=== PATIENT | female | born 1985 | race Hispanic/Latino ===

== ENCOUNTER 2019-03-30 11:57 | Emergency (ER) | payer BC, SELFPAY ==
--- OUTSIDE RECORDS SUMMARY | 2019-03-30 12:01 | XMS REPORT | Clinical Summary ---
:1985 Author Organization [facility] Address [address] [place] [address] Care Team Providers Name Role Phone Laurence Cartwright Radha PROFESSIONAL ORGANIZER-C Primary Care Provider Allergies No Known Allergies Medications Medication Sig Dispensed Refills Start Date End Date Status PROAIR HFA 90 0 01/26/2017 Active mcg/actuation inhaler benzonatate (TESSALON) 0 01/26/2017 Active 100 MG capsule Take 1 tablet by 0 Active vit,[id number] mouth daily. 29 mg iron- 1 mg tablet per tablet Active Problems Problem Noted Date Goiter, simple 03/25/2017 Last Assessment & Plan: Patti has a history of a slightly enlarged thyroid for many years. Previous testing results (scan and ultrasound) are not available today. Clinically she is euthyroid and her free T4 and TSH levels are normal. She has a slightly elevated thyroglobulin level. On exam she has a firm but not nodular thyroid. We will arrange for a formal thyroid ultrasound in the next few weeks. I will call her as soon as the results come in. Lung nodule 01/06/2017 Family History Medical History Relation Name Comments Diabetes Father Hyperlipidemia Father Prostate cancer Father Thyroid cancer Father Hyperlipidemia Mother Hypertension Mother Relation Name Status Comments Father Alive Mother Alive Social History Tobacco Use Types Packs/Day Years Used Date Never Smoker Smokeless Tobacco: Never Used Alcohol Use Drinks/Week oz/Week Comments Yes occassionally- beer & wine Sex Assigned at Date Recorded Not on file Job Start Date Occupation Industry Not on file Not on file Not on file Travel History Travel Start Travel End No recent travel history available. Last Filed Vital Signs Not on file Plan of Treatment Health Maintenance Due Date Last Done Comments INFLUENZA VACCINE 04/28/2019 Implants Implanted Type Area Bottle Booth Attendant Device Shelf Model / Identifier Expiration Serial / Date Lot Kit Selnt Plrl Air Leak 4ml Strl Progel - [id number] Surgical N/A: N/A [employer] [id number] / Implanted: 01/06/2017 (Quantity not on file) Implants; / Expanders; Extenders; Surgical Wires Results Not on fileafter 03/29/2018 Advance Directives Patient has advance care planning documents on file. For more information, please contact:Eric Oshea[address] [place] [address]
--- OUTSIDE RECORDS SUMMARY | 2019-03-30 12:01 | XMS REPORT ---
:1985 Author Organization [employer] Care Team Providers Name Role Phone Nikhil Harley Provider Role Unavailable Allergies, Adverse Reactions, Alerts Substance Reaction Event Type N.K.D.A. Info Not Available Non Drug Allergy Problems Problem Type Condition Code Onset Dates Condition Status Assessment Intermittent palpitations R00.2 Active Problem Prediabetes R73.03 Active Assessment Vitamin D deficiency disease E55.9 Active Assessment Prediabetes R73.03 Active Assessment Adult BMI 37.0-37.9 kg/sq m Z68.37 Active Assessment Hyperlipidemia, unspecified E78.5 Active hyperlipidemia type Problem Hyperlipidemia, unspecified E78.5 Active hyperlipidemia type Problem Adult BMI 37.0-37.9 kg/sq m Z68.37 Active Problem Vitamin D deficiency disease E55.9 Active Problem Thyroid dysfunction E07.9 Active Problem Vitamin B12 deficiency E53.8 Active Problem B12 deficiency E53.8 Active Problem BMI 35.0-35.9,adult Z68.35 Active Medications Medication Code Code Instructions Start End Status Dosage System Date Date [facility] [address] Active not Vitamin defined Iron [facility] [address]-74 Active not defined Vitamin D-3 [facility] [id number] 5000 UNIT Active 1 tablet Orally Once a day Results No Known Results Summary Purpose eClinical[employer] Submission
[2019-03-30] MEDS ORDERED: ONDANSETRON 4 MG/2 ML VIAL ONE (13:38)
[2019-03-30] MEDS ORDERED: NA CHLORIDE 0.9% 1,000 ML ONE (13:38)
[2019-03-30 13:40] LABS: Basophils % 0.7 % (0-1.3); Eosinophils % 1.2 % (0-4.4); Hematocrit 38.6 % (36.0-45.0); Lymphocytes % 29.8 % (15.3-44.8); MPV 9.5 fL (7.6-11.3); Monocytes % 4.2 % (3.3-12.3); RBC Red Blood Cell Count 4.69 M/uL (3.86-4.86)
[2019-03-30 14:09] LABS: ALT/SGPT 19 U/L (12-78); AST/SGOT 12 U/L (15-37); Albumin 3.3 g/dL (3.4-5.0); Alkaline Phosphatase 83 U/L (45-117); BUN Blood Urea Nitrogen 9 mg/dL (7-18); Bicarbonate 30 mmol/L (21-32); Bilirubin Direct < 0.1 mg/dL (0-0.2); Bilirubin Total 0.3 mg/dL (0.2-1.0); Glucose Level 94 mg/dL (74-106); Lipase 136 U/L (73-393); Potassium 3.8 mmol/L (3.5-5.1); Protein, Total 7.6 g/dL (6.4-8.2); Sodium Level 141 mmol/L (136-145)
[2019-03-30 15:40] LABS: Urine Blood NEGATIVE (NEG); Urine Glucose NEGATIVE (NEG); Urine Protein NEGATIVE (NEG); Urine Specific Gravity 1.015 (1.005-1.030)
--- NOTE | 2019-03-30 17:04 | RAD REPORT ---
EXAM DESCRIPTION: US - Abdomen Exam Limited - 03/30/2019 4:38 pm CLINICAL HISTORY: abdominal pain COMPARISON: <Comparisons> FINDINGS: The gallbladder is significantly contracted, limiting assessment. The common bile duct is normal measuring 4 mm. The liver demonstrates no findings of intrahepatic biliary dilatation. IMPRESSION: Significant gallbladder contraction, limits assessment. No pathologic biliary dilatation seen.
--- NOTE | 2019-03-30 17:15 | EDPHYS ---
Physician Documentation [facility] Name: Patti Cox Age: 33 yrs Sex: Female : 1985 Arrival Date: 03/30/2019 Time: 11:59 Bed 18 Private MD: ED Physician Rafael West HPI: 03/30 12:17 This 33 yrs old Female presents to ER via Ambulatory with complaints of jmm Nausea/Vomiting, Dizziness, Pain All Over. 12:17 The patient presents to the emergency department with nausea, vomiting, diarrhea. jmm Onset: The symptoms/episode began/occurred gradually, March 10. Possible causes: travel. The symptoms are aggravated by food , The symptoms are alleviated by OTC meds. Associated signs and symptoms: Pertinent positives:. This is a 33 year old female with no chronic medical conditions that presents to the ED with complaints of ongoing diarrhea since a visit to [place] on March 10. Patient states having intermittent diarrhea since worsening over the past 3 days. Patient states she now feels lightheaded and weak. Patient complains of pain to the right upper back which radiates up the side of her neck. patient denies abdominal pain. . 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 - Social history:: Smoking status: Patient/guardian denies using tobacco. - Ebola Screening: : Patient reports travel to an Ebola-affected area in the 21 days before illness onset. Patient reports to have traveled to [place]. ROS: 12:17 Constitutional: Negative for fever, chills, and weight loss, Cardiovascular: Negative jmm for chest pain, palpitations, and edema, Respiratory: Negative for shortness of breath, cough, wheezing, and pleuritic chest pain. 12:17 Neck: Positive for pain with movement. 12:17 Abdomen/GI: Positive for nausea and vomiting, diarrhea. 12:17 Neuro: Positive for dizziness. 12:17 All other systems are negative. Exam: 12:17 Constitutional: This is a well developed, well nourished patient who is awake, alert, jmm and in no acute distress. Head/Face: atraumatic. Eyes: EOMI, no conjunctival erythema appreciated ENT: Moist Mucus Membranes Neck: Trachea midline, Supple Chest/axilla: Normal chest wall appearance and motion. Cardiovascular: Regular rate and rhythm. No edema appreciated Respiratory: Normal respirations, no respiratory distress appreciated 12:17 Abdomen/GI: Inspection: obese Bowel sounds: normal, Palpation: abdomen is soft and non-tender, in all quadrants. 12:17 Skin: Appearance: Color: normal in color. 12:17 Neuro: Orientation: is normal, Mentation: is normal, Memory: is normal. 12:17 Psych: Behavior/mood is pleasant, cooperative. Vital Signs: 12:09 BP 148 / 88; Pulse 68; Resp 16; Temp 98.1(O); Pulse Ox 98% on R/A; Weight 104.33 kg; hb Height 5 ft. 5 in. (165.10 cm); Pain 5/10; 13:30 BP 98 / 69; Pulse 67; Resp 16; Pulse Ox 100% ; bp 15:19 BP 114 / 73; Pulse 63; Resp 16; Pulse Ox 99% ; bp 16:49 BP 105 / 71; Pulse 58; Resp 16; Pulse Ox 100% ; bp 17:57 BP 111 / 69; Pulse 61; Resp 16; Temp 98; Pulse Ox 99% ; bp 12:09 Body Mass Index 38.27 (104.33 kg, 165.10 cm) hb MDM: 12:17 Patient medically screened. [facility] 17:12 Data reviewed: vital signs, nurses notes. Counseling: I had a detailed discussion with [facility] the patient and/or guardian regarding: the historical points, exam findings, and any diagnostic results supporting the discharge/admit diagnosis, lab results, radiology results, the need for outpatient follow up, to return to the emergency department if symptoms worsen or persist or if there are any questions or concerns that arise at home. ED course: Patient is alert and non toxic in appearance in the ED. Patient was advised to follow up with GI for further evaluation. Patient otherwise given strict return precautions. patient understood and agrees with the plan of care. . 03/30 13:06 Order name: Basic Metabolic Panel; Complete Time: 14:18 [facility] 03/30 13:06 Order name: CBC with Diff; Complete Time: 13:51 [facility] 03/30 13:06 Order name: Creatinine for Radiology; Complete Time: 14:03 [facility] 03/30 13:06 Order name: Hepatic Function; Complete Time: 14:18 [facility] 03/30 13:06 Order name: Lipase; Complete Time: 14:18 [facility] 03/30 13:57 Order name: Urine Dipstick--Ancillary (enter results); Complete Time: 15:42 ms 03/30 13:06 Order name: IV Saline Lock; Complete Time: 13:38 [facility] 03/30 13:06 Order name: Labs collected and sent; Complete Time: 13:38 [facility] 03/30 13:14 Order name: EKG - Nurse/Tech; Complete Time: 13:20 [facility] 03/30 13:35 Order name: Urine Dipstick-Ancillary (obtain specimen); Complete Time: 13:45 [facility] 03/30 13:57 Order name: Urine --Ancillary (enter results); Complete Time: 15:42 ms 03/30 15:22 Order name: US Abdomen Limited; Complete Time: 17:12 jm Administered Medications: 13:30 Drug: NS 0.9% 1000 ml Route: IV; Rate: 1 bolus; Site: right antecubital; bp 17:58 Follow up: IV Status: Completed infusion; IV Intake: 1000ml bp 13:30 Drug: Zofran 4 mg Route: IVP; Site: right antecubital; bp 17:58 Follow up: Response: No adverse reaction bp Disposition: 18:29 Co-signature as Attending Physician, Rafael West MD. rn Disposition: 03/30/19 17:15 Discharged to Home. Impression: Vomiting, Diarrhea, unspecified. - Condition is Stable. - Discharge Instructions: Diarrhea, Adult, Nausea and Vomiting, Adult. - Prescriptions for Zofran ODT 4 mg Oral tablet,disintegrating - place 1 tablet by TRANSLINGUAL route every 4-6 hours; 20 tablet. - Medication Reconciliation Form, Thank You Letter, Antibiotic Education, Prescription Opioid Use form. - Follow up: Jef Newton MD; When: 2 - 3 days; Reason: Recheck today's complaints, Continuance of care, Re-evaluation by your physician. Signatures: Dispatcher [employer] EDMS Sher Dang PA PA jmm Nieto, Roman, MD MD rn Baxter, Heather, RN RN hb Peltier, Edward, RN RN bp Corrections: (The following items were deleted from the chart) 13:45 13:35 Urine Test ordered. krystyna bp 17:59 17:15 03/30/2019 17:15 Discharged to Home. Impression: Vomiting; Diarrhea, unspecified. bp Condition is Stable. Forms are Medication Reconciliation Form, Thank You Letter, Antibiotic Education, Prescription Opioid Use. Follow up: Jef Newton; When: 2 - 3 days; Reason: Recheck today's complaints, Continuance of care, Re-evaluation by your physician. krystyna
--- NOTE | 2019-03-30 17:15 | ER ---
Nurse's Notes [facility] Name: Patti Cox Age: 33 yrs Sex: Female : 1985 Arrival Date: 03/30/2019 Time: 11:59 Bed 18 Private MD: Diagnosis: Vomiting;Diarrhea, unspecified Presentation: 03/30 12:06 Presenting complaint: N/V/D, chills, dizziness, subjective fever, pain in neck, back, hb left leg, and right shoulder x 1 week. Tolerating fluids. Transition of care: patient was not received from another setting of care. Onset of symptoms was March 22, 2019. Risk Assessment: Do you want to hurt yourself or someone else? Patient reports no desire to harm self or others. Care prior to arrival: None. 12:06 Method Of Arrival: Ambulatory hb 12:06 Acuity: JASON 3 hb 17:58 Initial Sepsis Screen: Does the patient meet any 2 criteria? No. Patient's initial bp sepsis screen is negative. Does the patient have a suspected source of infection? No. Patient's initial sepsis screen is negative. Triage Assessment: 12:10 General: Appears in no apparent distress. comfortable, Behavior is cooperative, bp appropriate for age, anxious. Pain: Complains of pain in GENERALIZED MYALGIA. EENT: No deficits noted. Neuro: No deficits noted. Cardiovascular: No deficits noted. Respiratory: No deficits noted. GI: Reports nausea, vomiting. : No signs and/or symptoms were reported regarding the genitourinary system. Derm: No deficits noted. Musculoskeletal: No deficits noted. 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 - Social history:: Smoking status: Patient/guardian denies using tobacco. - Ebola Screening: : Patient reports travel to an Ebola-affected area in the 21 days before illness onset. Patient reports to have traveled to [place]. Screenin:10 Abuse screen: Denies threats or abuse. Denies injuries from another. Nutritional bp screening: No deficits noted. Tuberculosis screening: No symptoms or risk factors identified. Fall Risk None identified. Assessment: 12:10 General: SEE TRIAGE NOTE. bp 12:10 GI: Abdomen is non-distended, obese. bp 14:00 Reassessment: ALL CURRENT STUDIES COMPLETED, U/S PENDING. bp 16:49 Reassessment: U/S COMPLETED, RESULTS PENDING. VS STABLE ON MONITOR. bp 17:56 Reassessment: PT D/C HOME AMBULATORY, DX WITH NAUSEA AND VOMITING. bp Vital Signs: 12:09 BP 148 / 88; Pulse 68; Resp 16; Temp 98.1(O); Pulse Ox 98% on R/A; Weight 104.33 kg; hb Height 5 ft. 5 in. (165.10 cm); Pain 5/10; 13:30 BP 98 / 69; Pulse 67; Resp 16; Pulse Ox 100% ; bp 15:19 BP 114 / 73; Pulse 63; Resp 16; Pulse Ox 99% ; bp 16:49 BP 105 / 71; Pulse 58; Resp 16; Pulse Ox 100% ; bp 17:57 BP 111 / 69; Pulse 61; Resp 16; Temp 98; Pulse Ox 99% ; bp 12:09 Body Mass Index 38.27 (104.33 kg, 165.10 cm) hb ED Course: 11:59 Patient arrived in ED. as 12:09 Triage completed. hb 12:09 Arm band placed on. hb 12:10 Patient has correct armband on for positive identification. Bed in low position. Call bp light in reach. Side rails up X2. Adult w/ patient. 12:14 Sher Dang PA is PHCP. [facility] 12:14 Rafael West MD is Attending Physician. jmm 12:38 Edward Burns, LATRICE is Primary Nurse. bp 13:00 Patient maintains SpO2 saturation greater than 95% on room air. jp3 13:30 Initial lab(s) drawn, by pa, sent to lab. Urine collected: clean catch specimen, clear, jp3 bennett colored. Inserted saline lock: 22 gauge in right antecubital area, using aseptic technique. Blood collected. 13:38 Warm blanket given. Verbal reassurance given. Pulse ox on. NIBP on. jp3 13:38 Basic Metabolic Panel Sent. jp3 13:38 CBC with Diff Sent. jp3 13:38 Creatinine for Radiology Sent. jp3 13:38 Hepatic Function Sent. jp3 13:38 Lipase Sent. jp3 16:38 US Abdomen Limited In Process Unspecified. EDMS 17:14 Jef Newton MD is Referral Physician. m 17:56 No provider procedures requiring assistance completed. IV discontinued, intact, bp bleeding controlled, No redness/swelling at site. Pressure dressing applied. Administered Medications: 13:30 Drug: NS 0.9% 1000 ml Route: IV; Rate: 1 bolus; Site: right antecubital; bp 17:58 Follow up: IV Status: Completed infusion; IV Intake: 1000ml bp 13:30 Drug: Zofran 4 mg Route: IVP; Site: right antecubital; bp 17:58 Follow up: Response: No adverse reaction bp Intake: 17:58 IV: 1000ml; Total: 1000ml. bp Outcome: 17:15 Discharge ordered by . jmm 17:55 Discharged to home ambulatory. bp 17:55 Condition: stable 17:55 Discharge instructions given to patient, Instructed on discharge instructions, follow up and referral plans. medication usage, Demonstrated understanding of instructions, follow-up care, medications, Prescriptions given X 1. 17:59 Patient left the ED. bp Signatures: Dispatcher [employer] EDMS Sher Dang PA PA jmm Martinez, Amelia as Baxter, Heather, RN RN Edward Dwyer, LATRICE RN Doug Segura jp3
[2019-03-30 22:02] VITALS: BP 111/69; TEMP 98; O2SAT 99
== END 2019-03-30 17:59 | disposition home or self-care (01) ==
LOC: ER 11:57
DX: R19.7 Diarrhea, unspecified (principal)
CPT/HCPCS: 36415; 76705; 80048; 80076; 81003; 81025; 83690; 85025; 96361; 96374; 99284; J2405; J7030